=== PATIENT | male | born 1985 | race Caucasian/White ===

== ENCOUNTER 2023-12-22 18:16 | Emergency (ER) | payer OTHER ==
[2023-12-22 18:22] VITALS: BP 143/94; PULSE 92; RESP 18; TEMP 97.8; BMI 34.2
[2023-12-22 19:02] LABS: HEMATOCRIT 47.2 % (35.4-49); HEMOGLOBIN 16.3 GM/dL (11.7-16.9); MCH 29.4 pg (25.7-33.7); MCHC 34.5 g/dl (32.0-35.9); MEAN CELL VOLUME 85.1 fl (80-96); MEAN PLT VOLUME 7.1 fl (7.5-11.1); PLATELET COUNT 304 10^3/uL (134-434); RBC 5.55 M/mm3 (4.00-5.60); RDW 13.7 % (11.9-15.9); WHITE BLOOD COUNT 14.9 K/mm3 (4.0-10.0)
[2023-12-22 19:24] LABS: POTASSIUM 4.4 mmol/L (3.5-5.1)
[2023-12-22 19:28] LABS: ALBUMIN 4.6 g/dl (3.4-5.0); BLOOD UREA NITROGEN 13.5 mg/dL (7-18); CALCIUM 9.7 mg/dL (8.5-10.1)
[2023-12-22 19:31] LABS: CREATININE 1.2 mg/dL (0.55-1.3)
[2023-12-22 19:33] LABS: BILIRUBIN,TOTAL 0.6 mg/dL (0.2-1); TOT PROT 8.3 g/dl (6.4-8.2)
[2023-12-22 19:37] LABS: URINE APPEARANCE TURBID; URINE BILIRUBIN NEGATIVE (NEGATIVE); URINE GLUCOSE (UA) NEGATIVE (NEGATIVE)
[2023-12-22 19:38] LABS: URINE KETONE TRACE (NEGATIVE)
[2023-12-22 19:39] LABS: URINE PROTEIN 2+ (NEGATIVE); URINE UROBILINOGEN 0.2 mg/dL (0.2-1.0)
[2023-12-22 19:40] LABS: URINE COLOR RED
[2023-12-22] MEDS ORDERED: TAMSULOSIN HCL 0.4 MG CAP ONE (22:26)
[2023-12-22] MEDS: TAMSULOSIN HCL 0.4 MG CAP PO ONE (22:33)
== END 2023-12-22 22:33 | disposition home or self-care (01) ==
LOC: JER 18:16
DX: N13.2 Hydronephrosis with renal and ureteral calculous obstruction (principal); R10.9 Unspecified abdominal pain; R31.9 Hematuria, unspecified
CPT/HCPCS: 36415; 74176-TC; 80053; 81003; 81015; 85027; 87086; 99284-25

== ENCOUNTER 2024-02-17 04:36 | Day surgery (SDC) | payer OTHER ==
[2024-02-14 09:48] VITALS: BMI 37.9
[2024-02-17] MEDS ORDERED: ONDANSETRON 4 MG/2 ML VIAL ONE (16:49)
[2024-02-17] MEDS ORDERED: MIDAZOLAM HCL 2 MG/2 ML SINGLE DOSE VIAL ONE (16:54)
[2024-02-17 18:05] VITALS: RESP 20
[2024-02-17 18:09] VITALS: BP 122/84; PULSE 89; TEMP 97.1
== END 2024-02-17 17:39 | disposition home or self-care (01) ==
LOC: JASU-SURG 04:36
PROVIDERS: ATTEND Urology
PROC: 0TF3XZZ Fragmentation in Right Kidney Pelvis, External Approach (ICD-10-PCS; principal; 2024-02-17 16:30)
DX: N20.0 Calculus of kidney (principal)